=== PATIENT | male | born 1960 | race Caucasian/White ===

== ENCOUNTER 2016-09-20 16:45 | Emergency (ER) | payer MEDICARE, MEDICAID ==
[2016-09-20] MEDS ORDERED: Ketorolac INJ* 30 MG/ML 1 ML VIAL IV ONE (17:20)
[2016-09-20] MEDS ORDERED: NS 0.9% 1000 ML* 1,000 ML IV ONE (17:20)
--- NOTE | 2016-09-20 17:35 | ED ---
GI/ HPI - HPI Summary HPI Summary: Patient presents to ED with CC of left sided flank pain since this morning. He notes to previous pyelonephritis to both kidneys last year. He has no history of stones. 5/10 pain, intermittent, better with position, worse with nothing. He takes morphine chronically for neck pain. He denies fevers, sweats or chills. Denies urgency, frequency, burning upon urination. He takes gabapentin , morphine, HTN medication daily. He is otherwise healthy. - History of Current Complaint Chief Complaint: EDFlankPain Time Seen by Provider: 09/20/16 17:10 Stated Complaint: LT FLANK PAIN Hx Obtained From: Patient Onset/Duration: Started Days Ago Timing: Constant Severity: Moderate Current Severity: Moderate Pain Intensity: 4 Location of Pain: Flank Pain Characteristics: Sharp, Cramping Pain Radiates to: Back Aggravating Factor(s): Nothing Alleviating Factor(s): Nothing - Allergy/Home Medications Allergies/Adverse Reactions: Allergies Allergy/AdvReac Type Severity Reaction Status Date / Time Adhesive Tape Allergy Intermediate Blisters Verified 12/06/15 12:53 PMH/Surg Hx/FS Hx/Imm Hx Previously Healthy: Yes Cardiovascular History: Reports: Hx Hypertension - ON MEDS Denies: Other Cardiovascular Problems/Disorders Respiratory History: Denies: Other Respiratory Problems/Disorders GI History: Reports: Hx Gastroesophageal Reflux Disease Denies: Other GI Disorders Musculoskeletal History: Reports: Hx Arthritis - EIGHT WRIST, LEFT SHOULDER, Hx Back Problems - herniated disc, osteoarthritis, Other Musculoskeletal History - left rotator cuff repaiR Sensory History: Reports: Hx Contacts or Glasses - GLASSES, Hx Hearing Aid - LOSR HEARING AIDS Opthamlomology History: Reports: Hx Contacts or Glasses - GLASSES Neurological History: Reports: Hx Migraine Denies: Other Neuro Impairments/Disorders - Surgical History Surgery Procedure, Year, and Place: L shoulder rotator cuff scopy;. HERNIA REPAIR. Left 2nd finger DIP amputation Hx Anesthesia Reactions: No Infectious Disease History: Denies: Traveled Outside the [place] in Last 30 Days - Family History Known Family History: Positive: None, Cardiac Disease, Diabetes - father, Other - [place], Parkinsons (mother) - Social History Occupation: Employed Full-time Lives: With Family Alcohol Use: Rare Alcohol Amount: HOLIDAYS Hx Substance Use: No Substance Use Type: Reports: None Smoking Status (MU): Former Smoker Type: Cigarettes Amount Used/How Often: 1.5 PACKS PER DAY Length of Time of Smoking/Using Tobacco: began at 6 years of age-late forties Have You Smoked in the Last Year: No Review of Systems Constitutional: Negative Eyes: Negative Cardiovascular: Negative Respiratory: Negative Gastrointestinal: Negative Positive: see HPI, flank pain Musculoskeletal: Negative Skin: Negative Neurological: Negative All Other Systems Reviewed And Are Negative: Yes Physical Exam Triage Information Reviewed: Yes Vital Signs On Initial Exam: Initial Vitals Temp Pulse Resp BP Pulse Ox 98.9 F 81 18 138/72 98 09/20/16 16:54 09/20/16 16:54 09/20/16 16:54 09/20/16 16:54 09/20/16 16:54 Completion Of Physical Exam Limited Due To: Dementia Appearance: Positive: Well-Appearing, No Pain Distress, Well-Nourished Skin: Positive: Warm, Skin Color Reflects Adequate Perfusion Head/Face: Positive: Normal Head/Face Inspection Eyes: Positive: EOMI, LYNNETTE, Conjunctiva Clear Neck: Positive: Supple, No Lymphadenopathy Respiratory/Lung Sounds: Positive: Clear to Auscultation, Breath Sounds Present Cardiovascular: Positive: Normal, RRR, Pulses are Symmetrical in both Upper and Lower Extremities Abdomen Description: Positive: CVA Tenderness (L) Musculoskeletal: Positive: Normal, Strength/ROM Intact Neurological: Positive: Sensory/Motor Intact, Alert, Oriented to Person Place, Time, Speech Normal Psychiatric: Positive: Normal Diagnostics - Vital Signs Vital Signs Temp Pulse Resp BP Pulse Ox 09/20/16 16:54 98.9 F 81 18 138/72 98 - Laboratory Result Diagrams: 09/20/16 18:50 Lab Statement: Any lab studies that have been ordered have been reviewed, and results considered in the medical decision making process. GIGU Course/Dx - Course Course Of Treatment: Patients labs drawn. All WNL. UA WNL. IMPRESSION: 1. Normal appendix documented. 2. Mild colonic diverticulosis without findings of diverticulitis. 3. Negative for urolithiasis or hydronephrosis. Likely left sided muscle strain. Medications were reveiwed with patient. Encouarged to follow up with PCP or return to ED for worsening symptoms. Return precautions given. Patient understands and agrees with plan. Ok for discharge. - Diagnoses Differential Diagnoses - Male: Ureteral Calculi, Urinary Tract Infection Provider Diagnoses: Low back strain Discharge - Discharge Plan Condition: Stable Disposition: HOME Patient Education Materials: Low Back Strain (ED) Referrals: Brenden Muniz MD [Primary Care Provider] - Additional Instructions: Dx. Muscle Strain Ibuprofen 600mg three times daily with meals for discomfort. Return to ED if symptoms worsen or fail to improve, notice worsening swelling, warmth or redness around the joint, develop fever, or pain is uncontrolled with OTC medications. Moist heat to the area for comfort. Warm showers or baths may improve symptoms. It is important to remain mobile as tolerated to prevent stiffening of the joints and delay healing. Follow up with your PCP. If symptoms remain for > 6 weeks, please seek special medical attention from an orthopedic physician.
--- NOTE | 2016-09-20 17:58 | RAD ---
INDICATION: LEFT side flank pain for one week. Previous hernia repair. COMPARISON: No relevant prior exams available on the [facility]. TECHNIQUE: Multidetector CT images were obtained from the lung bases to the ischial tuberosities. Evaluation of the viscera is limited without IV contrast. Multiplanar reformation. REPORT: Minimal basilar subsegmental atelectasis. Negative for CT abnormality of the unenhanced liver, gallbladder, pancreas, spleen. Unremarkable upper GI, small bowel, retrocecal appendix. Mild colonic diverticulosis. No evidence for acute diverticulitis. Negative for ascites, free air, hernias. Postsurgical change of probable bilateral inguinal hernia repair. Normal adrenal glands. Negative for urolithiasis or hydronephrosis. Unremarkable kidneys and nondilated ureters. Unremarkable distended urinary bladder. Symmetric seminal vesicles. Negative for lymphadenopathy. Normal diameter abdominal aorta and common iliac arteries. Physiologic distention of the IVC. Negative for suspicious osseous lesions. IMPRESSION: 1. Normal appendix documented. 2. Mild colonic diverticulosis without findings of diverticulitis. 3. Negative for urolithiasis or hydronephrosis.
[2016-09-20 19:03] LABS: Urine Bilirubin Negative (Negative); Urine Glucose Negative (Negative); Urine Nitrite Negative (Negative)
[2016-09-20 19:04] LABS: Hematocrit 42 % (42-52); Hemoglobin 14.8 g/dl (14.0-18.0); Mean Corpuscular HGB Conc 35 g/dl (31-36); Mean Corpuscular Hemoglobin 31 pg (27-31); Mean Corpuscular Volume 88 fL (80-94); Mean Platelet Volume 7 um3 (7.4-10.4); Red Blood Count 4.82 10^6/ul (4.0-5.4); Red Cell Distribution Width 13 % (10.5-15); White Blood Count 5.8 10^3/ul (3.5-10.8)
[2016-09-20 19:17] LABS: Albumin 4.5 g/dL (3.2-5.2); BUN/Creatinine Ratio 13.9 (8-20); C Reactive Protein 4.14 mg/L (< 5.00); Calcium 8.7 mg/dL (8.6-10.3); EGFR Non-African American 70.7 (>60); Globulin 2.3 g/dL (2-4); Potassium 4.1 mmol/L (3.5-5.0); Total Bilirubin 0.7 mg/dL (0.2-1.0); Total Protein 6.8 g/dL (6.4-8.9)
[2016-09-20 19:32] VITALS: BP 133/74
== END 2016-09-20 20:30 | disposition home or self-care (01) ==
LOC: ED 16:45
DX: R10.84 Generalized abdominal pain (principal); Z87.891 Personal history of nicotine dependence; S39.012A Strain of muscle, fascia and tendon of lower back, initial encounter; X58.XXXA Exposure to other specified factors, initial encounter; Y93.89 Activity, other specified; Y92.9 Unspecified place or not applicable
CPT/HCPCS: 36415; 74176; 80053; 81003; 85025; 86140; 99282; J1885

== ENCOUNTER 2017-03-20 18:28 | Emergency (ER) | payer MEDICAID, MEDICARE, OTHER ==
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
[2017-03-20] MEDS ORDERED: Cyclobenzaprine TAB* 10 MG PO ONE (20:44)
[2017-03-20] MEDS ORDERED: Ketorolac INJ* 30 MG/ML 1 ML VIAL IM ONE (20:44)
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
[2017-03-20 21:38] VITALS: BP 145/70
== END 2017-03-20 21:28 | disposition home or self-care (01) ==
LOC: UCEAST 18:28
DX: M79.1 Myalgia (principal); M50.323 Other cervical disc degeneration at C6-C7 level; I10 Essential (primary) hypertension; K21.9 Gastro-esophageal reflux disease without esophagitis; Z91.048 Other nonmedicinal substance allergy status; Z87.891 Personal history of nicotine dependence
CPT/HCPCS: 71046; 72050; 99213; A9270-GY; G0463; J1885

== ENCOUNTER 2017-09-21 17:17 | Emergency (ER) | payer MEDICARE, OTHER ==
[2017-09-21 17:27] VITALS: BP 139/64
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
--- NOTE | 2017-09-21 18:57 | RAD ---
INDICATION: Low back and LEFT greater than RIGHT flank pain. COMPARISON: September 20, 2016 CT. TECHNIQUE: Multidetector CT images were obtained from the lung bases to the ischial tuberosities. Evaluation of the viscera is limited without IV contrast. Multiplanar reformation including bone algorithm images of the lumbar sacral spine. REPORT: VISUALIZED INFERIOR THORAX: Minimal bilateral dependent atelectasis at the lung bases. LIVER / GALLBLADDER / PANCREAS / SPLEEN: Unremarkable liver. Decompressed gallbladder limiting assessment without gross abnormality. Unremarkable pancreas and spleen. ALIMENTARY TRACT: Unremarkable upper GI, small bowel, and retrocecal appendix. Mild colonic diverticulosis without findings of acute diverticulitis. Negative for ascites, free air, or significant hernias. MESENTERIC: Unremarkable. ADRENAL / GENITOURINARY: Normal adrenal glands. Negative for urolithiasis or hydronephrosis. No conspicuous focal renal lesions. Unremarkable nondilated ureters and incompletely distended urinary bladder. Symmetric seminal vesicles. RETROPERITONEAL: Negative for lymphadenopathy. VASCULAR: Normal diameter abdominal aorta and iliac arteries. Physiologic partial distention of the IVC. BONES: 0.9 cm sclerotic lesion at the RIGHT sacral ala is only mildly increased in size compared with the 2013 exam consistent with a benign bone island. Negative for suspicious focal osseous lesions. Negative for fracture. Normal lumbar sacral spine alignment. Multilevel mild degenerative spondylosis with mild vertebral and plate osteophytosis and disc space narrowing. Multilevel predominant mild facet joint osteoarthritis. At L4-L5 annular disc bulge and facet ligamentous hypertrophic arthropathy results in mild acquired central canal stenosis and mild bilateral foraminal stenosis without significant change. At L5-S1 annular disc bulge and vertebral endplate osteophytosis along with facet ligamentous hypertrophic arthropathy results in mild bilateral foraminal stenosis without significant change. SOFT TISSUE: Unremarkable. IMPRESSION: #. Post appendectomy. Moderate colonic diverticulosis without findings of acute diverticulitis. #. Negative for urolithiasis or hydronephrosis. #. Degenerative spondylosis and facet joint osteoarthritis results in mild L4-L5 acquired central canal stenosis and mild bilateral foraminal stenosis at L4-L5 and L5-S1 without significant interval change.
== END 2017-09-21 19:27 | disposition home or self-care (01) ==
LOC: UCEAST 17:17
DX: M54.5 Low back pain (principal); R30.0 Dysuria; M54.2 Cervicalgia; K57.30 Diverticulosis of large intestine without perforation or abscess without bleeding; Z90.89 Acquired absence of other organs; Z91.048 Other nonmedicinal substance allergy status; Z87.891 Personal history of nicotine dependence
CPT/HCPCS: 72131; 74176; 81003; 87086; 99212; G0463

== ENCOUNTER 2017-11-22 15:49 | Emergency (ER) | payer SELFPAY ==
[2017-11-22 16:01] VITALS: BP 135/78
--- NOTE | 2017-11-22 16:57 | UC ---
Respiratory Complaint HPI - HPI Summary HPI Summary: The patient is a 57-year-old male that has been ill for 3 days. Initially had runny nose and nasal congestion. This was followed by chest pressure and cough. He has been feeling slightly short of breath. He states he has had chronic cough with sputum production but it is worsened with this illness. He denies any nausea vomiting or diarrhea. - History of Current Complaint Chief Complaint: UCRespiratory Stated Complaint: RESP COMPLAINT Time Seen by Provider: 11/22/17 16:26 Hx Obtained From: Patient Onset/Duration: Gradual Onset, Lasting Days Timing: Constant Severity Initially: Mild Severity Currently: Severe Pain Intensity: 10 - he has chronic leg pain Pain Scale Used: 0-10 Numeric Character: Cough: Productive Aggravating Factors: Nothing Alleviating Factors: Nothing Associated Signs And Symptoms: Positive: Chills, Nasal Congestion - Allergies/Home Medications Allergies/Adverse Reactions: Allergies Allergy/AdvReac Type Severity Reaction Status Date / Time Adhesive Tape Allergy Intermediate Blisters Verified 11/22/17 16:01 PMH/Surg Hx/FS Hx/Imm Hx Previously Healthy: Yes Endocrine History: Dyslipidemia Cardiovascular History: Hypertension Respiratory History: Bronchitis, Pneumonia - Surgical History Surgical History: Yes Surgery Procedure, Year, and Place: L shoulder rotator cuff scopy;. HERNIA REPAIR. Left 2nd finger DIP amputation - Family History Known Family History: Positive: Cardiac Disease, Hypertension, Diabetes - father , Other - [place], Parkinsons (mother) - Social History Alcohol Use: Occasionally Alcohol Amount: HOLIDAYS Substance Use Type: None Smoking Status (MU): Former Smoker Type: Cigarettes Amount Used/How Often: 1.5 PACKS PER DAY Length of Time of Smoking/Using Tobacco: began at 6 years of age-late forties Have You Smoked in the Last Year: No When Did the Patient Quit Smoking/Using Tobacco: 1998 Review of Systems Constitutional: Chills Skin: Negative Eyes: Negative ENT: Nasal Discharge Respiratory: Cough Cardiovascular: Negative Gastrointestinal: Negative Genitourinary: Negative Motor: Negative Neurovascular: Negative Musculoskeletal: Myalgia Neurological: Negative Psychological: Negative All Other Systems Reviewed And Are Negative: Yes Physical Exam Triage Information Reviewed: Yes Appearance: Well-Appearing, No Pain Distress, Well-Nourished Vital Signs: Initial Vital Signs Temp 99.2 F 11/22/17 15:58 Pulse 78 11/22/17 15:58 Resp 18 11/22/17 15:58 BP 135/78 11/22/17 15:58 Pulse Ox 98 11/22/17 15:58 Vital Signs Reviewed: Yes Eyes: Positive: Conjunctiva Clear ENT: Positive: Normal ENT inspection. Negative: Nasal congestion, Nasal drainage, Tonsillar swelling, Tonsillar exudate, Muffled voice, Hoarse voice Neck: Positive: Supple, Nontender, No Lymphadenopathy Respiratory: Positive: No respiratory distress, No accessory muscle use, Rhonchi Cardiovascular: Positive: RRR, No Murmur Musculoskeletal: Positive: No Edema Neurological: Positive: Alert Psychological Exam: Normal Psychological: Positive: Decreased Age Appropriate Behavior UC Diagnostic Evaluation - Laboratory O2 Sat by Pulse Oximetry: 98 - normal/not hypoxic Diagnostic Studies Comment: influenza - - Radiology Xray Interpretation: No Acute Changes Radiology Interpretation Completed By: Radiologist - EKG Cardiac Rate: NL Cardiac Rhythm: Sinus: Normal Ectopy: None ST Segment: Normal Respiratory Course/Dx - Differential Dx/Diagnosis Provider Diagnoses: acute bronchitis Discharge - Sign-Out/Discharge Documenting (check all that apply): Patient Departure All imaging exams completed and their final reports reviewed: Yes - Discharge Plan Condition: Stable Disposition: HOME Prescriptions: DOXYcycline CAP(*) [DOXYcycline 100MG CAP(*)] 100 mg PO BID #12 cap Patient Education Materials: Acute Bronchitis (ED) Referrals: Brenden Muniz MD [Primary Care Provider] - 4 Days (if not better) Additional Instructions: recheck for new or worsening symptoms - Billing Disposition and Condition Condition: STABLE Disposition: Home
--- NOTE | 2017-11-22 17:11 | RAD ---
INDICATION: Cough, rhinorrhea, sore throat, myalgias. Symptoms for 3 days. COMPARISON: No relevant prior exams available on the [facility] PACS for comparison. TECHNIQUE: Dual energy PA and routine lateral views of the chest were obtained. REPORT: Clear lungs and pleural spaces. Negative for pneumothorax. The heart, pulmonary vasculature, and mediastinal contours are unremarkable. Unremarkable osseous structures and soft tissue contours. IMPRESSION: #. No evidence for pneumonia. Negative exam.
[2017-11-22] MEDS ORDERED: DOXYcycline CAP(*) 100 MG PO ONE (17:29)
== END 2017-11-22 17:40 | disposition home or self-care (01) ==
LOC: UCEAST 15:49
DX: J20.9 Acute bronchitis, unspecified (principal); I10 Essential (primary) hypertension; Z91.09 Other allergy status, other than to drugs and biological substances; Z87.891 Personal history of nicotine dependence
CPT/HCPCS: 71046; 93005; 99212; A9270-GY; G0463

== ENCOUNTER 2018-06-05 17:32 | Emergency (ER) | payer MEDICAID, MEDICARE ==
[2018-06-05 17:52] VITALS: BP 136/61
[2018-06-05] MEDS ORDERED: Benzoin Compound STICK TOPICAL ONE (18:40)
[2018-06-05] MEDS ORDERED: Tetan/Diph/Pertus SYR(Tdap)* 0.5 ML SYR(BOOSTRIX) use SYR IM ONE (18:45)
--- NOTE | 2018-06-05 19:05 | UC ---
Laceration HPI - HPI Summary HPI Summary: 2 cm laceration to back of left hand near thum---occured when washing dishes--- no active bleeding well approximated n/m/c intact distally - History Of Current Complaint Chief Complaint: UCLaceration Stated Complaint: LFT FINGER LAC Time Seen by Provider: 06/05/18 18:23 Hx Obtained From: Patient Laceration Location: Hand - left Mechanism Of Injury: Sharp Trauma Onset/Duration: Sudden Onset Pain Intensity: 0 Pain Scale Used: 0-10 Numeric Aggravating Factors: Nothing - Allergies/Home Medications Allergies/Adverse Reactions: Allergies Allergy/AdvReac Type Severity Reaction Status Date / Time Adhesive Tape Allergy Intermediate Blisters Verified 06/05/18 17:52 PMH/Surg Hx/FS Hx/Imm Hx Endocrine History: Dyslipidemia Cardiovascular History: Hypertension GI/ History: Gastroesophageal Reflux - Surgical History Surgical History: Yes Surgery Procedure, Year, and Place: L shoulder rotator cuff scopy;. HERNIA REPAIR. Left 2nd finger DIP amputation - Family History Known Family History: Positive: Cardiac Disease, Hypertension, Diabetes - father , Other - [place], Parkinsons (mother) - Social History Occupation: Disabled Lives: With Family Alcohol Use: Occasionally Alcohol Amount: [place]IDAYS Substance Use Type: None Smoking Status (MU): Former Smoker Type: Cigarettes Amount Used/How Often: 1.5 PACKS PER DAY Length of Time of Smoking/Using Tobacco: began at 6 years of age-late forties Have You Smoked in the Last Year: No When Did the Patient Quit Smoking/Using Tobacco: 1998 - Immunization History Most Recent Tetanus Shot: unknown Review of Systems All Other Systems Reviewed And Are Negative: Yes Constitutional: Positive: Negative Skin: Positive: Other - laceration lack of left head near thumb Eyes: Positive: Negative ENT: Positive: Negative Respiratory: Positive: Negative Cardiovascular: Positive: Negative Gastrointestinal: Positive: Negative Genitourinary: Positive: Negative Motor: Positive: Negative Neurovascular: Positive: Negative Musculoskeletal: Positive: Negative Neurological: Positive: Negative Psychological: Positive: Negative Is Patient Immunocompromised?: No Physical Exam Triage Information Reviewed: Yes Appearance: Well-Appearing, No Pain Distress, Well-Nourished Vital Signs: Initial Vital Signs Temp 97.4 F 06/05/18 17:49 Pulse 76 06/05/18 17:49 Resp 18 06/05/18 17:49 BP 136/61 06/05/18 17:49 Pulse Ox 96 04/20/19 17:49 Vital Signs Reviewed: Yes Eye Exam: Normal Eyes: Positive: Conjunctiva Clear ENT Exam: Normal ENT: Positive: Normal ENT inspection, Hearing grossly normal. Negative: Trismus , Muffled voice, Hoarse voice Dental Exam: Normal Neck exam: Normal Neck: Positive: Supple, Nontender Respiratory Exam: Normal Respiratory: Positive: Chest non-tender, No respiratory distress, No accessory muscle use Cardiovascular Exam: Normal Cardiovascular: Positive: RRR, Pulses Normal, Brisk Capillary Refill Musculoskeletal Exam: Normal Musculoskeletal: Positive: Strength Intact, ROM Intact, No Edema Neurological Exam: Normal Neurological: Positive: Alert, Muscle Tone Normal Psychological Exam: Normal Skin Exam: Other Skin: Positive: Other - laceration left hand as described Images Hands: 1 - 2 cm arc Laceration Repair - Laceration Repair 1 Description: Irregular Laceration Size After Repair: Length (cm) - 2, Width (mm) - 2 Modified For Repair: No Cleansing Completed Via Routine Prep: Yes Irrigation With Pressure Irrigation Device: Yes Closure Material: Skin Adhesive, SteriStrips Laceration Course/Dx - Course/Dx Course Of Treatment: keep dry allow strips fall off on their own , patient refused Boostrix, follow with pcp as needed - Diagnosis Provider Diagnosis: Laceration of left hand Discharge - Sign-Out/Discharge Documenting (check all that apply): Patient Departure All imaging exams completed and their final reports reviewed: No Studies - Discharge Plan Condition: Stable Disposition: HOME Patient Education Materials: Diphtheria/Acellular Pertussis/Tetanus Booster Vaccine (By injection), Laceration (ED), Skin Adhesive Care (ED) Referrals: Brenden Muniz MD [Primary Care Provider] - If Needed - Billing Disposition and Condition Condition: STABLE Disposition: Home
== END 2018-06-05 19:17 | disposition home or self-care (01) ==
LOC: UCEAST 17:32
DX: S61.412A Laceration without foreign body of left hand, initial encounter (principal); W26.9XXA Contact with unspecified sharp object(s), initial encounter; Y93.G1 Activity, food preparation and clean up; Y92.9 Unspecified place or not applicable; Z23 Encounter for immunization; E78.5 Hyperlipidemia, unspecified; I10 Essential (primary) hypertension; K21.9 Gastro-esophageal reflux disease without esophagitis; Z89.022 Acquired absence of left finger(s); Z91.048 Other nonmedicinal substance allergy status; Z87.891 Personal history of nicotine dependence
CPT/HCPCS: 12001; 90471; 90715; 99211; G0463

== ENCOUNTER 2018-12-02 08:03 | Day surgery (SDC) | payer MEDICARE, MEDICAID ==
[~2018-12-02 08:03] MED LIST: Buffered Lidocaine 1% SYRIN* 1 ML/SYRINGE INTRADERM ONE; Famotidine IV* 10 MG/ML 2 ML (20 mg) IV ONE; Famotidine IV* 10 MG/ML 2 ML (20 mg) ONE; Lactated Ringers 1000 ML Bag* 1,000 ML IV SCH
[2018-12-02] MEDS ORDERED: Midazolam* 1 MG/ML 2 ML VIAL (2 MG) ONE (08:58)
[2018-12-02] MEDS ORDERED: Propofol* 10 MG/ML 20 ML BTL ONE (08:58)
[2018-12-02] MEDS ORDERED: Bupivacaine 0.25% SDV* 30 ML ONE (09:03)
[2018-12-02] MEDS ORDERED: Acetaminophen TAB* 325 MG PO PRN (09:45)
[2018-12-02] MEDS ORDERED: oxyCODONE TAB* 5 MG TAB PO PRN (09:45)
[2018-12-02] MEDS ORDERED: Ibuprofen TAB* 400 MG PO PRN (09:45)
[2018-12-02] MEDS ORDERED: Ondansetron INJ* 2 MG/ML VIAL IV PRN (09:45)
[2018-12-02] MEDS ORDERED: Naloxone* 0.4 MG/ML 1 ML VIAL IV PRN (09:45)
[2018-12-02 10:45] VITALS: BP 150/71
--- NOTE | 2018-12-02 21:40 | OP ---
DATE OF OPERATION: 12/02/18 [facility] DATE OF : 60 SURGEON: John Gómez MD [employer] PRINCIPAL: VANDA Means ANESTHESIOLOGIST: Dr. Medina. ANESTHESIA: Local MAC. PRE-OP DIAGNOSIS: Right thumb mucous cyst. POST-OP DIAGNOSIS: Right thumb mucous cyst. OPERATIVE PROCEDURE: Excision of right thumb mucous cyst. INDICATIONS: Mr. Dimas has a pretty large mucous cyst. We had talked about risks and benefits, he had wanted to proceed. ESTIMATED BLOOD LOSS: 2 mL. COMPLICATIONS: None. FINDINGS: See above and below. DESCRIPTION OF PROCEDURE: Mr. Dimas was seen in the preoperative holding area. The correct side, site, and procedure were identified. We came back to the operating room. A digital block was performed with 0.25% plain Marcaine. The arm was prepped and draped in the usual fashion. I went ahead and placed a finger tourniquet on the thumb. I then raised a little T-shaped flap over the mucous cyst which was sitting on the dorsal radial aspect of the thumb IP joint. I went ahead and performed a marginal excision of the thumb, tracking it back to the joint capsule of the dorsoradial side between the collateral ligament and extensor tendon. Cyst was excised in its entirety. A little bit of the joint capsule was excised as well. The area was cauterized with the Bovie. At this point, everything was looking good. The wound was irrigated out and closed with 4-0 nylon suture. Thumb was dressed with Xeroform, 4x4, some gauze and some Coban. He was taken to the recovery room in stable condition. [id number]/[facility] #: [id number] [facility]
== END 2018-12-02 10:38 | disposition home or self-care (01) ==
LOC: OREAST 08:03
PROVIDERS: ATTEND Orthopaedic Surgery Hand Surgery
DX: M67.441 Ganglion, right hand (principal); I10 Essential (primary) hypertension; E78.00 Pure hypercholesterolemia, unspecified; Z87.891 Personal history of nicotine dependence; K21.9 Gastro-esophageal reflux disease without esophagitis; Z86.718 Personal history of other venous thrombosis and embolism
CPT/HCPCS: 88304; J2250; J2704; J3490